=== PATIENT | male | born 1995 | race Two or more races ===

== ENCOUNTER 2016-06-01 06:17 | Day surgery (SDC) | payer OTHER ==
[2016-05-31 09:56] VITALS: BMI 23.7
[2016-06-01] VITALS (21 sets, daily range): BP systolic 122–171; BP diastolic 54–78; PULSE 64–90; RESP 14–20; Ht 180.3 cm; Wt 77.0 kg
[~2016-06-01] VITALS: Ht 180.3 cm; Wt 77.0 kg
[2016-06-01] MEDS ORDERED: POLYMYXIN/BACITRACIN 1L IRRIG ONE (07:05)
[2016-06-01] MEDS ORDERED: XOPENEX (07:17)
[2016-06-01] MEDS ORDERED: FENTAnyl 50 MCG/ML VIAL ONE (07:33)
[2016-06-01] MEDS ORDERED: ROPIVACAINE 0.5 % 30 ML VIAL ONE ×3 (07:33→11:20)
[2016-06-01] MEDS ORDERED: MIDAZOLAM 1 MG/ML 2 ML INJ ONE (07:33)
--- NOTE | 2016-06-01 07:51 | HPN ---
Date/Time of Note Date/Time of Note DATE: 06/01/16 TIME: 07:51 Interval H&P Admission Note Pt. seen H&P reviewed: No system changes IRIS ANDREWS MD Jun 01, 2016 07:51
[2016-06-01] MEDS ORDERED: CEFAZOLIN 2 GM/50 ML (PMX) 50 ML IVPB ONE (08:00)
[2016-06-01] MEDS ORDERED: morphine 10 MG INJ IV PRN (08:00)
[2016-06-01] MEDS ORDERED: morphine 2 MG INJ IV PRN (08:00)
[2016-06-01] MEDS ORDERED: OXYCODONE/ACETAMINOPHEN (5/325) TAB PO PRN (08:00)
[2016-06-01] MEDS ORDERED: ONDANSETRON 4 MG INJ IV PRN (09:00)
[2016-06-01] MEDS ORDERED: DIPHENHYDRAMINE 50 MG INJ IV PRN (09:00)
[2016-06-01] MEDS ORDERED: FENTAnyl 50 MCG/ML VIAL IV PRN (09:00)
[2016-06-01] MEDS ORDERED: MEPERIDINE 25 MG INJ IV PRN (09:00)
[2016-06-01] MEDS ORDERED: HYDROmorphONE (0.2 MG/ML) 10ML SYG IV PRN ×2 (09:00)
[2016-06-01] MEDS ORDERED: BUPIVACAINE 0.5% (SDV) 30 ML INJ ONE (09:03)
[2016-06-01] MEDS ORDERED: POVIDONE IODINE 10% 28.4 GM OINT ONE (10:54)
[2016-06-01] MEDS ORDERED: morphine 10 MG INJ ONE (11:18)
--- NOTE | 2016-06-01 11:20 | RADRPT ---
PROCEDURE: 5 intraoperative radiographs were obtained in surgery with fluoroscopy. CLINICAL INDICATION: Fluoroscopic intraoperative evaluation of the right knee prior arthroscopic s urgery. TECHNIQUE: 5 intraoperative radiographs are performed in the AP and lateral projections. COMPARISON: No. FINDINGS: The femur tibia fibula and patella appear anatomically aligned. Surgical hardware projects over the dorsal surface of the patella. There were Blanco hands placed in the distal femur. No effusion is present. IMPRESSION: Fluoro time: 41.9 seconds mGy: 1.61 Physician Dennis Date Time Electronically viewed and signed by Tj Martinez Physician on 06/01/2016 11:20 LUKAS/
[2016-06-01] MEDS ORDERED: ONDANSETRON 4 MG INJ ONE (11:23)
[2016-06-01] MEDS ORDERED: ROCURONIUM 50 MG INJ ONE (11:23)
[2016-06-01] MEDS ORDERED: LIDOCAINE 2% (SDV) 5 ML INJ ONE (11:23)
[2016-06-01] MEDS ORDERED: PROPOFOL 20 ML ONE (11:23)
[2016-06-01] MEDS ORDERED: CEFAZOLIN 1 GM INJ ONE (11:48)
--- NOTE | 2016-06-03 12:08 | OPR ---
Patella dislocation DATE OF OPERATION: 06/01/2016 SURGEON: Iris Darnell MD. LAND LEVELER SURGEON: Francisco Darnell MD PREOPERATIVE DIAGNOSIS: 1. Right knee recurrent patella dislocation 2. Chondromalacia of the patellofemoral joint. POSTOPERATIVE DIAGNOSES: 1. 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 2. Grade 2/3 chondromalacia of the medial patella facet with fissuring and lateral trochlear shelf. PROCEDURES: 1. Right knee arthroscopy with chondroplasty. 2. Right knee medial parapatellar ligament reconstruction with semitendinosus allograft. 3. Right knee medial parapatellar ligament reefing. 4. Use of fluoroscopy. TOURNIQUET TIME: 109 minutes at 250 mmHg. ANESTHESIOLOGIST: Dr. Soria ANESTHESIA: General with a popliteal block IMPLANTS: 1. 2 4.75 mm Arthrex swivel lock. 2. A 6 x 23 mm Arthrex bio composite interference screw. 3. A semi tendinosis allograft. COMPLICATIONS: None. PATHOLOGY: None. INDICATIONS: The patient is a 20-year-old gentleman who sustained approximately 4 patellar dislocations over the course of the past 2 to 3 years and now presents with pain over the medial patella retinaculum with MRI showing complete tear of the medial patellofemoral ligament. The patient tried brace wear as well as physical therapy which has not improved his subluxation events or improved his ability to be active, given his constant concern for continued dislocation. Given this, the patient was indicated for surgical procedure. RISK NOTE: The patient was explained the risks and benefits of surgery in the patient's [place] language including, but not limited to, infection, bleeding, loss of limb, loss of life, pain, need for future surgery, risk of injury to blood vessels, nerves, ligaments or tendons. The patient acknowledges these risks by signing the surgical consent form. DESCRIPTION OF PROCEDURE: The patient was brought back to the operative theater , placed supine on the operative table and given preoperative regional block anesthesia and preoperative antibiotics. The patient had initially been marked in the preoperative holding area and the correct operative extremity was marked and confirmed with both patient and his consent. Once the patient was supine on the operative table, the patient had a tourniquet placed nonsterilely on the operative extremity. The patient was then prepped and draped in the normal sterile fashion. A timeout was taken and all parties in the room agreed it was the correct patient, correct extremity and correct procedure. The patient's knee was examined and shown that the patella subluxed laterally to approximately 2-3 quadrants of lateral no most recent patella translation. The anteromedial and anterolateral portals were then used and the arthroscope was then brought into the knee in the suprapatellar pouch. There was no evidence of any loose bodies in the suprapatellar pouch; however, the patellofemoral joint was then identified and there was shown to be extensive chondromalacia on the undersurface of patella specifically along the medial patella ridge where there was extensive fissuring noted with approximately grade II/grade III chondromalacia. The patella was also shown to be shifted laterally so that the medial border of the patella was just past or just along the lateral edge of the trochlear groove representing approximately 2 to 2.5 quadrants of translation. The scope was then brought into the medial gutter where no loose bodies were seen and then brought into the lateral gutter where again no loose bodies were seen and then brought into the popliteal groove. Again, no loose bodies were seen. The scope was then brought into the lateral joint and in the lateral compartment, the lateral meniscus was identified and probed and meniscus was found to be firm and intact. The scope was then brought into the intercondylar notch and the ACL was then identified and the PCL was identified and probed and the ACL and PCL were shown to be intact. The scope was then brought into the medial compartment and the medial compartment showed the metastatic melanoma was intact. The posterior horn was identified and found to be attached and intact as well. A superior medial arthroscopic portal was made to better evaluate for tracking of the patella which also showed the patella fissuring of the medial patella facet. This also allowed for the arthroscopy to be maintained in the knee to evaluate for tracking and for recentralization of the patella during surgery. At this point in time, the scope was then brought out and the tourniquet was brought up to approximately 250 mmHg and incision was made along the medial border of the patella and the incision was brought down to expose the medial edge of the patella and under fluoroscopic guidance, at approximately the 3 and 4 layer, just above the capsular layer, under fluoroscopic guidance, at a point approximately 3 mm distal to the proximal medial quadrant of the patella, a 2.4 mm drill bit guide pin was then placed across in a transverse fashion under fluoroscopic guidance to a minimum depth of approximately 25 mm. The second 2.4 mm guide pin was then placed approximately 15 mm distal to the first one and then placed in a parallel fashion to the first one. The guide pin again was over drilled with a 4.5 mm reamer to a depth of approximately 25 mm proximally and 20 mm in the mid portion. At this point, the graft had been already whipstitched on the back table with a 2-0 FiberWire suture and measured approximately 240 mm in length. The tail of the first graft was then passed using the BioComposite SwiveLock into the patella and then the suture was then back tied to reinforce the fixation using a curved free needle. The second limb of the graft was then placed into the mid portion of the patella again in a similar fashion and back tied to further reinforce the fixation. Attention was then turned to the femoral insertion site and the proper position of the femoral insertion of the MPFL was identified approximately 1 mm anterior to the posterior cortex extension line, 2.5 mm distal to the posterior articular border of the medial femoral condyle and just proximal to the level of the posterior point of Blumensaat line. This was identified using the MPFL template in the lateral view and then a 2.4 mm guidepin was drilled across the femur and out through the lateral epicondyle. The pin, at this point, was then aimed slightly proximal and anterior to avoid the intercondylar notch. The medial subdermal layer was then prepared using a right angle clamp to dissect into the prepared layer down to the medial epicondyle. A looped FiberWire was then passed to the patellar insertion and the isometry of the MPFL was provisionally evaluated and cycled through a range of motion. The graft was then passed from the patella origin to the insertion port of the medial femoral condyle. Equal tension was maintained on both graft bundles during this step to ensure adequate tensioning of the patellofemoral joint and the sutures were then delivered out the medial incision with equal tension on both grafts. A 1.1 mm Nitinol wire was then placed into the drill hole to guide and facilitate the insertion of the graft and facilitate the insertion of the 6 x 23 mm BioComposite interference screw. The graft sutures were then brought into the eyelet of the K-wire to deliver it out through the lateral femur prior to the graft entering the femoral socket. Using the clamp with a diana, the graft was pretensioned and inserted into the socket with equal tension on both sides of the graft bundles, manually fixating the lateral patellar facet flush with the lateral femoral condyle, with the knee at approximately 30 degrees of flexion. While maintaining tension on the graft, the interference screw was then placed into the femur. Tracking was then identified with the knee taken through a range of motion to ensure there was not over tension. At this point, the MPFL was then reefed with 2-0 FiberWire using a pants-over- vest fashion and then the layer above was irrigated thoroughly and the layer above was closed with 3-0 Monocryls followed by 4-0 nylon in running fashion. All the wounds were then irrigated thoroughly and closed with 3-0 Monocryl and 4 -0 Monocryl and Steri-Strips and then taken through a range of motion to ensure that there was not over tensioning. The patient was able to be brought to 90 degrees without concern of over tensioning past 90 degrees to approximately 110 degrees. The wounds were then dressed with Xeroform, 4 x 4's, ABDs and dressed in a well-padded dressing with TONYA hose. At the end of the case, all sponge and needle counts were correct, and pulses were 2+ distally. The patient was placed in a knee immobilizer, given that the insurance company had not given the patient the adequate brace that we had we had requested which was the TROM brace in order to maintain full extension. LAND LEVELER NOTE: The use of an orthopedic security assistant was needed on this case given the complexity and length of the case. Orthopedic security assistant was needed to assist in manipulating the arthroscope during the case, as well as positioning of the patella during the introduction of the screws to maintain adequate reduction of the patella. Without the use of an orthopedic security assistant, the case would have been extensively longer and more complex better. Dictated By: IRIS GOLDBERG/SUSANNAH Conf#: [id number] DID#: [id number] JULIANNA
== END 2016-06-01 14:43 | disposition home or self-care (01) ==
LOC: SDS 06:17
PROVIDERS: ATTEND Orthopaedic Surgery
DX: M22.01 Recurrent dislocation of patella, right knee (principal); M94.261 Chondromalacia, right knee; Z88.8 Allergy status to other drugs, medicaments and biological substances
CPT/HCPCS: 27422; 29877; 73560; J0690; J2250; J2270; J2405; J2795; J3010; Z7512; Z7610

== ENCOUNTER 2016-06-01 21:57 | Inpatient (IN) | payer OTHER ==
[~2016-06-01] VITALS: Ht 180.3 cm; Wt 74.9 kg
[~2016-06-01 21:57] MED LIST: XOPENEX
[2016-06-01] MEDS ORDERED: HYDROmorphONE 1 MG/ML SYG IV STA (23:08)
[2016-06-01] MEDS ORDERED: KETOROLAC 30 MG INJ IV STA (23:08)
[2016-06-01] MEDS ORDERED: DIAZEPAM 5 MG/ML SYG IV ONE (23:30)
[2016-06-02] MEDS ORDERED: HYDROmorphONE 1 MG/ML SYG IV STA ×3 (00:41→01:36)
--- NOTE | 2016-06-02 01:21 | RADRPT ---
PROCEDURE: US Lower extremity Venous. CLINICAL INDICATION: Postoperative pain and swelling TECHNIQUE: Multiple sonographic images of the right lower extremity deep venous system was obtaine d utilizing grayscale, color-flow, compressive sonography and doppler imaging with augmentation. COMPARISON: None. FINDINGS: There is normal compressibility / flow within the right common femoral, femoral and popliteal veins. The visualized deep veins of the calf are unremarkable. RPTAT:HJJR IMPRESSION: No sonographic evidence for deep venous thrombosis of the right lower extremity. Physician Chantell Date Time Electronically viewed and signed by Physician Chantell on 06/02/2016 01:21 /
[2016-06-02] MEDS ORDERED: CEFAZOLIN 1 GM INJ IV SCH (02:00)
[2016-06-02] MEDS ORDERED: DIAZEPAM 5 MG/ML SYG IV ONE (02:00)
[2016-06-02] MEDS ORDERED: ACETAMINOPHEN 325 MG TAB PO PRN ×2 (02:00→03:30)
[2016-06-02] MEDS ORDERED: HYDROmorphONE 0.2 MG/ML PCA IV SCH ×3 (02:00→12:00)
[2016-06-02] MEDS ORDERED: ONDANSETRON 4 MG INJ IV PRN (02:00)
[2016-06-02] MEDS ORDERED: DIPHENHYDRAMINE 25 MG CAP PO PRN (02:00)
[2016-06-02] MEDS ORDERED: CYCLOBENZAPRINE 10 MG TAB PO PRN ×2 (02:00→09:00)
--- NOTE | 2016-06-02 02:05 | OPR ---
Date/Time of Note Date/Time of Note DATE: 06/02/16 TIME: 02:02 Operative Report Procedure Date: Jun 01, 2016 Preoperative Diagnosis Right knee recurrent patellar desiccation Postoperative Diagnosis Right knee recurrent patellar dislocation Operation Performed 1. Right knee arthroscopy with chondroplasty 2. right knee medial patellofemoral ligament reconstruction with semitendinosus allograft 3. right knee medial femoral ligament reefing 4. use of fluoroscopy Surgeon: IRIS ANDREWS MD rn first assistant: RAOUL ANDREWS MD Anesthesia: general, other (Fashion iliacus block) Anesthesiologist: DAVIS LEVINE MD Tourniquet Time: 109 minutes at 250 mmHg Estimated Blood Loss: 0 - 10 ml's Complications: None Pt Condition Post Procedure: stable Disposition: PACU IRIS ANDREWS MD Jun 02, 2016 02:05
--- NOTE | 2016-06-02 02:11 | HP ---
Date/Time of Note Date/Time of Note DATE: 06/02/16 TIME: 02:10 Assessment/Plan VTE Prophylaxis VTE Prophylaxis Intervention: anti-embolic stocking, SCD's Assessment/Plan Assessment/Plan Postoperative day #0 status post right knee arthroscopy with chondroplasty and right knee medial patellofemoral ligament reconstruction with semitendinosus allograft -POWER LINE INSTALLER, p.o. and IV pain control -Nonweightbearing to the right lower extremity with continuous ice and knee immobilizer - Physical therapy to gait train SCDs and TONYA slade Ultrasound shows no evidence of any DVT currently HPI/ROS Admit Date/Time Admit Date/Time 06/02/16 0144 Hx of Present Illness Patient is here with his father who does most of the talking. Patient had surgery on right knee the morning of 06/01/[address] Darnell. The procedure went as planned. No post-operative complications. Unfortunately, patient's nerve block wore off after approximately 10 hours and his knee pain has become worse and worse, brining him to the ER in tears. They tell me it was supposed to last for 24 hours. I told them that different people react differently and that I am sorry he did not get the full potential benefit of that medication. The pain meds that were prescribed by Dr Darnell were not strong enough and so he came to the ER for treatment. During this interview, I find out that patient had sleep apnea when he was younger. He does not have a CPAP and has not had a Sleep Study as an adult. Patient states he has only woke up choking once recently, and it used to happen to him all of the time. No history of Heart Murmur ROS General: Admits: Denies: Fever, Chills, Poor Appetite, Generalized Body Aches Eyes: Admits: Denies: Blurry Vision, Double Vision HENT: Admits: Denies: Ear Pain/Pressure, Runny/Stuffy Nose, Sore Throat Cardiovascular: Admits: Denies: Chest Pain, Palpitations, Leg Swelling Pulmonary: Admits: Denies: Cough, Wheeze, Shortness of Breath Gastrointestinal: Admits: Denies: Abdominal Pain, Nausea, Vomiting, Diarrhea, Blood in Stool, Black-Colored Stool Urogenital: Admits: Denies: Burning with Urination, Urinary Frequency Musculoskeletal: Admits: Joint Pain, Joint Swelling, Muscle Pain, all in Right Knee Denies: Neurological: Admits: Denies: Headache, Dizziness, Numbness, Tingling, Shooting Pains Integumentary: Admits: Denies: Rash, Itch Endocrine: Admits: Denies: Excessive Thirst, Excessive Hunger, Intolerant to Cold , Intolerant to Heat Psychiatric: Admits: Denies: Anxiety, Depression PMH/Family/Social Past Medical History Sleep Apnea, currently untreated - not tested with Sleep Study as an adult Past Surgical History Right Knee Surgery: arthroscopy with chondroplasty and right knee medial patellofemoral ligament reconstruction with semitendinosus allograft Social History Alcohol Use: none Smoking Status: Never smoker Drug Use: none Exam/Review of Systems Vital Signs Vitals Vital Signs Date Time Temp Pulse Resp B/P Pulse Ox O2 Delivery O2 Flow Rate FiO2 06/01/16 23:56 67 20 159/83 100 Nasal Cannula 06/01/16 22:45 97.9 Exam Exam General: Eyes: Sclera White, EOMI HENT: Normocephalic/Atraumatic, External Ears/Nose Normal, Moist Mucus Membranes Neck: Supple, Trachea Midline Cardiovascular: Normal Rate, Normal Rhythm, Late SANDI at LLSB radiating to the LUSB, but not heard on the right side. The second heart sond is split or there is a gallp or the Murmur is actually mid-systolc. Pulmonary: Clear to Auscultation Bilaterally, Normal Respiratory Effort, No Rales, Rhonchi or Wheezes Gastrointestinal: Normoactive Bowel Sounds, Soft, Non-Tender/Non-Distended, No Hepatosplenomegaly Appreciated, No Pulsatile Masses Urogenital: Deferred Musculoskeletal: Normal Muscle Bulk and Tone. Right Knee in Long Brace. I did not remove brace or palpate the knee, leaving that to Dr. Darnell. Patient could wiggle his toes and flex/dorsiflex- his right foot with little to no discomfort in his knee. Neurological: CN II - XII Grossly Intact, Non-Focal, Speech Normal Integumentary: Normal Moisture and Temperature, Good Turgor, No Jaundice, No Rash Lymphatic: No Cervical Lymphadenopathy Psychiatric: Appropriate Mood and Affect, Good Eye Contact Medications Medications Current Medications Cefazolin Sodium (Ancef) 1 gm Q8H IV ; Start 06/02/16 at 02:00; Stop 06/03/16 at 18:01 Ondansetron HCl (Zofran Inj) 4 mg Q4H PRN IV NAUSEA AND/OR VOMITING; Start at 02:00 Diphenhydramine HCl (Benadryl) 25 mg Q4H PRN PO ITCHING; Start 06/02/16 at 02: 00 Cyclobenzaprine HCl (Flexeril) 10 mg QHS PRN PO MUSCLE SPASMS; Start 06/02/16 at 02:00 Hydromorphone HCl (Dilaudid POWER LINE INSTALLER) 0 MG/HR CONTINUOUS RATE ... Q4PCA IV ; Start 06/02/16 at 02:00 Ketorolac Tromethamine (Toradol) 30 mg Q6 IV ; Start 06/02/16 at 06:00; Stop at 05:59 Ascorbic Acid (Vitamin C) 1,000 mg DAILY ONCE PO ; Start 06/02/16 at 09:00; Stop 06/02/16 at 09:01 Cholecalciferol (Vitamin D) 5,000 unit DAILY ONCE PO ; Start 06/02/16 at 09:00 ; Stop 06/02/16 at 09:01 FAUSTINO MYLES DO Jun 02, 2016 02:11
--- NOTE | 2016-06-02 02:11 | CONS ---
Date/Time of Note Date/Time of Note DATE: 06/02/16 TIME: 02:05 Assessment/Plan Assessment/Plan Additional Assessment/Plan Postoperative day #0 status post right knee arthroscopy with chondroplasty and right knee medial patellofemoral ligament reconstruction with semitendinosus allograft -GUARD CAPTAIN, p.o. and IV pain control -Nonweightbearing to the right lower extremity with continuous ice and knee immobilizer - Physical therapy to gait train SCDs and TONYA slade Ultrasound shows no evidence of any DVT currently Brennon Andrews MD Consultation Date/Type/Reason Admit Date/Time 06/02/2016 Date of Consultation: Jun 02, 2016 Type of Consultation: Orthopedic Surgery Referring Provider: FAUSTINO MYLES DO Hx of Present Illness Patient is a 20-year-old gentleman who is admitted to the emergency room status post right knee arthroscopy with medial patellofemoral ligament reconstruction with semitendinosus allograft performed on the morning of 06/01/2016. Patient was discharged home from surgery with pain well-controlled however I received a several phone calls over the past several hours indicating that the patient's block had worn off and his pain was very high. Patient reported the pain medicine was not able to control his pain and I suggested the patient will report to the emergency room for better control of his pain. Patient denies any chest pain or heart palpitations he does report that he is breathing quite rapidly and feeling very anxious. He denies any numbness or tingling. Past Medical History Medical History: no pertinent history Past Surgical History As stated above Social History Alcohol Use: none Smoking Status: Never smoker Drug Use: none Exam/Review of Systems Vital Signs Vitals Vital Signs Date Time Temp Pulse Resp B/P Pulse Ox O2 Delivery O2 Flow Rate FiO2 06/01/16 23:56 67 20 159/83 100 Nasal Cannula 06/01/16 22:45 97.9 Exam Constitutional: alert, oriented, well developed Psych: anxiety Head: atraumatic, normocephalic Eyes: EOMI, nl conjunctiva, nl lids Musculoskeletal: other (Right lower extremity-wounds appear clean dry and intact with no evidence of any erythema ecchymosis or edema. He has ankle dorsiflexion and plantar flexion with intact extensor hallucis longus. Sensation is intact light touch to the medial, lateral, plantar, dorsal, first dorsal webspace distribution. He has a soft compartment to both feet, hamstring , quadriceps and anterior and posterior tibial compartments. He has a 2+ dorsalis pedis and posterior tibialis pulses with capillary refill brisk and toes warm and well-perfused ) Medications Medications Current Medications Cefazolin Sodium (Ancef) 1 gm Q8H IV ; Start 06/02/16 at 02:00; Stop 06/03/16 at 18:01 Ondansetron HCl (Zofran Inj) 4 mg Q4H PRN IV NAUSEA AND/OR VOMITING; Start at 02:00 Diphenhydramine HCl (Benadryl) 25 mg Q4H PRN PO ITCHING; Start 06/02/16 at 02: 00 Cyclobenzaprine HCl (Flexeril) 10 mg QHS PRN PO MUSCLE SPASMS; Start 06/02/16 at 02:00 Hydromorphone HCl (Dilaudid GUARD CAPTAIN) 0 MG/HR CONTINUOUS RATE ... Q4PCA IV ; Start 06/02/16 at 02:00 Ketorolac Tromethamine (Toradol) 30 mg Q6 IV ; Start 06/02/16 at 06:00; Stop at 05:59 BRENNON ANDREWS MD Jun 02, 2016 02:11
--- NOTE | 2016-06-02 02:17 | RADRPT ---
PROCEDURE: Right lower extremity arterial ultrasound with Doppler. CLINICAL INDICATION: Pain and edema. TECHNIQUE: Multiple sonographic images of the right lower extremity arterial system was obtained u tilizing grayscale, color-flow and Doppler imaging. The images were reviewed on a PACS workstation. COMPARISON: None. FINDINGS: There is biphasic and triphasic flow within the right common femoral, superficial femoral, popliteal , posterior tibial and dorsalis pedis arteries. There is no significant atherosclerotic disease. Th ere is no stenosis or occlusion. IMPRESSION: Unremarkable right lower extremity arterial ultrasound. .Cristhian Interiano MD, MD Date Time Electronically viewed and signed by .Cristhian Interiano MD, MD on 06/02/2016 02:16 .T/
[2016-06-02 02:28] LABS: ADD SCAN DIFF NO
[2016-06-02 02:36] LABS: POTASSIUM 3.5 mmol/L (3.5-5.1)
[2016-06-02 02:38] LABS: CREATININE 0.98 mg/dl (0.61-1.24)
--- NOTE | 2016-06-02 02:44 | ERA ---
ER Documentation Chief Complaint Date/Time DATE: 06/02/16 TIME: 02:35 Chief Complaint s/p right knee surgery this am, c/o right knee pain/sob x 1 hour HPI 20-year-old male comes to emergency room status post knee surgery this morning for severe pain not responsive to 3 OxyContin pills at home. The pain is right in the surgical area and has no distal numbness. ROS All systems reviewed and are negative except as per history of present illness. Medications Home Meds Reported Medications [Xopenex] No Conflict Check 06/01/16 Allergies Allergies: Coded Allergies: lansoprazole (Verified Allergy, Unknown, 06/01/16) metoclopramide (Verified Allergy, Unknown, 06/01/16) PMhx/Soc History of Surgery: Yes (FUNDOPLICATION) Anesthesia Reaction: No Hx Neurological Disorder: No Hx Respiratory Disorders: Yes Hx Cardiac Disorders: No Hx Psychiatric Problems: No Hx Miscellaneous Medical Probl: No Hx Alcohol Use: Yes (OCCAISIONALLY) Hx Substance Use: No Hx Tobacco Use: No Smoking Status: Never smoker Physical Exam Vitals Vital Signs Date Time Temp Pulse Resp B/P Pulse Ox O2 Delivery O2 Flow Rate FiO2 06/01/16 23:56 67 20 159/83 100 Nasal Cannula 06/01/16 22:45 97.9 85 18 185/93 100 Nasal Cannula 06/01/16 22:03 98.7 86 20 172/104 100 Physical Exam Const: [] Moderate distress, Head: Atraumatic Eyes: Normal Conjunctiva ENT: Normal External Ears, Nose and Mouth. Neck: Full range of motion..~ No meningismus. Resp: Clear to auscultation bilaterally Cardio: Regular rate and rhythm, no murmurs Skin: No petechiae or rashes Back: No midline or flank tenderness Ext: No cyanosis, or edema, distal pulses intact distal extremities. Well- healing surgical site without significant swelling. Distal sensation intact. Neur: Awake and alert and oriented 3, cranial nerves II through XII intact Psych: Normal Mood and Affect Results 24 hrs Current Medications Medications (Trade) Dose Ordered Sig/Tasneem Route PRN Reason Start Time Stop Time Status Last Admin Dose Admin Diazepam (Valium) 5 mg ONCE ONCE IV 06/01/16 23:30 06/01/16 23:31 DC 06/01/16 23:29 Ketorolac Tromethamine (Toradol) 30 mg ONCE STAT IV 06/01/16 23:08 06/01/16 23:11 DC 06/01/16 23:28 Hydromorphone HCl (Dilaudid) 0.5 mg ONCE STAT IV 06/01/16 23:08 06/01/16 23:11 DC 06/01/16 23:28 Hydromorphone HCl (Dilaudid) 1 mg ONCE STAT IV 06/02/16 00:41 06/02/16 00:45 DC 06/02/16 00:49 Hydromorphone HCl (Dilaudid) 1 mg ONCE STAT IV 06/02/16 01:36 06/02/16 01:42 DC 06/02/16 01:43 Hydromorphone HCl (Dilaudid) 0.5 mg ONCE STAT IV 06/02/16 01:36 06/02/16 01:42 DC 06/02/16 01:44 Ondansetron HCl (Zofran Inj) 4 mg BRIDGE ORDER PRN IV NAUSEA AND/OR VOMITING 06/02/16 02:00 06/03/16 01:59 Acetaminophen (Tylenol Tab) 650 mg ER BRIDGE PRN PO MILD PAIN/FEVER 06/02/16 02:00 06/03/16 01:59 Diazepam (Valium) 5 mg ONCE ONCE IV 06/02/16 02:00 06/02/16 02:01 DC 06/02/16 02:09 Cefazolin Sodium (Ancef) 1 gm Q8H IV 06/02/16 02:00 06/03/16 18:01 Ondansetron HCl (Zofran Inj) 4 mg Q4H PRN IV NAUSEA AND/OR VOMITING 06/02/16 02:00 Diphenhydramine HCl (Benadryl) 25 mg Q4H PRN PO ITCHING 06/02/16 02:00 Cyclobenzaprine HCl (Flexeril) 10 mg QHS PRN PO MUSCLE SPASMS 06/02/16 02:00 Hydromorphone HCl (Dilaudid INVESTMENT SALES ASSISTANT) 0 MG/HR CONTINUOUS RATE ... Q4PCA IV 06/02/16 02:00 Ketorolac Tromethamine (Toradol) 30 mg Q6 IV 06/02/16 06:00 06/05/16 05:59 Ascorbic Acid (Vitamin C) 1,000 mg DAILY ONCE PO 06/02/16 09:00 06/02/16 09:01 Cholecalciferol (Vitamin D) 5,000 unit DAILY ONCE PO 06/02/16 09:00 06/02/16 09:01 Procedures/MDM Refractory postop knee pain. Patient was initially given Dilaudid, Valium, Toradol which is his pain immediately. He then did have return of severe pain requiring multiple doses of pain medication. I spoke with Dr. Darnell, who performed the surgery earlier today. He came in the emergency room and saw the patient. We both agreed the patient should be admitted for intractable pain. Venous and arterial Dopplers were performed with no significant vascular lesion. I spoke with Dr. Rice will be admitting the patient to the medical surgical floor. Ultrasound venous Doppler right lower extremity interpretation: No DVT Doppler arterial ultrasound right lower extremity: No arterial lesion, good blood flow. Departure Diagnosis: Primary Impression: Postoperative pain Additional Impression: Intractable pain Condition: Stable ERWIN BARRIOS Jun 02, 2016 02:43
[2016-06-02 02:48] LABS: BASOPHILS % 0.2 % (0.0-2.0); HEMOGLOBIN 15.1 g/dl (14.0-18.0); LYMPHOCYTES # 0.9 10^3/ul (0.8-2.9); LYMPHOCYTES % 7.9 % (15.0-51.0); MEAN CORPUSCULAR HEMOGLOBIN 28.2 pg (29.0-33.0); MEAN CORPUSCULAR HGB CONC 32.8 g/dl (32.0-37.0); MEAN PLATELET VOLUME 10.3 fl (7.4-10.4); MONOCYTE # 0.8 10^3/ul (0.3-0.9); NEUTROPHIL # 9.9 10^3/ul (1.6-7.5); NEUTROPHILS % 84.6 % (39.0-77.0); PLATELET COUNT 220 10^3/UL (140-415); RED BLOOD COUNT 5.35 10^6/ul (4.70-6.10); RED CELL DISTRIBUTION WIDTH 12.4 % (11.5-14.5); WHITE BLOOD COUNT 11.7 10^3/ul (4.8-10.8)
[2016-06-02 03:09] VITALS: TEMP 98
[2016-06-02] MEDS ORDERED: NACL 0.9% 3 ML SYG IV SCH (03:30)
[2016-06-02] MEDS ORDERED: NALOXONE (0.4 MG/ML) INJ IV PRN (03:30)
[2016-06-02 03:45] VITALS: Ht 180.3 cm; Wt 74.9 kg
[2016-06-02 03:55] VITALS: BP 156/86; RESP 20
[2016-06-02] MEDS ORDERED: HYDROmorphONE 2 MG/ML SYG IV STA (04:16)
[2016-06-02] MEDS: KETOROLAC 30 MG INJ IV SCH ×3 (07:44→18:55)
[2016-06-02 08:14] VITALS: BP 137/77; RESP 20
[2016-06-02] MEDS ORDERED: CHOLECALCIFEROL 2,000 UNIT CAP PO ONE (09:00)
[2016-06-02] MEDS ORDERED: ASCORBIC ACID 500 MG TAB PO ONE (09:00)
[2016-06-02] MEDS: FAMOTIDINE 20 MG TAB PO SCH ×2 (09:05→21:26)
[2016-06-02] MEDS: ONDANSETRON 4 MG INJ IV PRN (09:07)
[2016-06-02] MEDS: CEFAZOLIN 1 GM/50 ML (PMX) 50 ML IVPB SCH ×2 (10:03→18:55)
--- NOTE | 2016-06-02 10:04 | RADRPT ---
Echocardiogram Report Patient Name: JUAN CARLOS PINO Gender: Male Date: 1995 Study Date: 02-Jun-2016 Histotechnologist Supervisor: [facility] Location: [id number] Ref. Physician: FAUSTINO MYLES Quality: Technically Difficult Study Procedures: Transthoracic echocardiogram with complete 2D, M-Mode, and doppler examination. Indications: UNDIAGNOSED CARDIAC MURMUR. 2D/M Mode Doppler Measurement Value Normal Ranges Measurement Value Normal Ranges LVIDd 2D 4.8 3.5 - 5.6 cm AV Peak Jc 1.5 m/sec LVIDs 2D 3.0 2.1 - 4.1 cm AV Peak PG 9.0 mmHg FS 2D 37.9 % LVOT Peak Jc 1.2 m/sec LVPWd 2D 1.2 0.6 - 1.1 cm LVOT Peak PG 6.0 mmHg IVSd 2D 0.9 0.6 - 1.1 cm MV E Peak Jc 0.8 m/sec IVS/LVPW 2D 0.8 MV A Peak Jc 1.0 m/sec AoR Diam 2D 2.6 2.0 - 3.7 cm MV E/A 0.8 LA/Ao 2D 1 0 - 1 MV Decel Time 232 msec EDV 2D 109.0 cm3 MV E/A 0.8 ESV 2D 26.2 cm3 LA Dimen 2D 3.1 2.3 - 4.0 cm Findings Left Ventricle: Normal left ventricular systolic function. Normal left ventricular cavity size. Normal left ventricular wall thickness. Ejection fraction is visually estimated at 65 %. Abnormal Diastolic Function. Right Ventricle: Normal right ventricular size. Normal right ventricular systolic function. Left Atrium: The left atrium is normal in size. Right Atrium: The right atrium is normal in size. Mitral Valve: Mild mitral leaflet calcification. Trace mitral regurgitation. Aortic Valve: Trileaflet aortic valve. Trace aortic valve regurgitation. Tricuspid Valve: Tricuspid valve not well visualized. There is trace tricuspid regurgitation. Pulmonic Valve: There is trace pulmonic regurgitation. Pericardium: Normal pericardium with no significant pericardial effusion. Aorta: Normal aortic root. IVC: Dilated IVC with respiratory collapse consistent with elevated right atrial pressure. Conclusions 1.Normal left ventricular systolic function. Normal left ventricular cavity size. Normal left ventricular wall thickness. Ejection fraction is visually estimated at 65 %. Abnormal Diastolic Function. Electronically Signed By: Pavan Chatman 02-Jun-2016 10:03:49 -0700 Patient Name: JUAN CARLOS PINO Study Date: 02-Jun-2016 [id number]
--- NOTE | 2016-06-02 11:48 | PN ---
Date/Time of Note Date/Time of Note DATE: 06/02/16 TIME: 11:48 Assessment/Plan Lines/Catheters IV Catheter Type (from Nrsg): Saline Lock Assessment/Plan Assessment/Plan POD# 1 status post right knee arthroscopy with medial patellofemoral ligament reconstruction with semitendinosus allograft performed on the morning of 2016. Admitted early this morning for intractable post op pain. Arterial and venous doppler u/s negative. Patient has a high level of anxiety associated with the surgery and pain was not well controlled. - NWB to the RLE in knee immobilizer - PT to gt - PROGRAMMER NUMERICAL CONTROL, oxycodone prn and toradol for pain - Dr Hutchins consulted for pain management - Appreciate Primary and Cards recs regarding newly diagnoses diastolic heart murmur - will plan to dc when pain is better controlled. - SCDs, teds, - MRI of the R knee to evaluate for increased post op pain ---- Jones Andrews MD Subjective 24 Hr Interval Summary Patient's pain is much better controlled now on dilaudid PROGRAMMER NUMERICAL CONTROL. Denies any fevers , chills, nausea, vomiting. Still feeling some anxiety, but less so then yesterday evening. Denies any numbness or tingling Feeding: advancing diet Pain Control: severe Exam/Review of Systems Vital Signs Vitals Vital Signs Date Time Temp Pulse Resp B/P Pulse Ox O2 Delivery O2 Flow Rate FiO2 06/02/16 08:14 98.0 62 20 137/77 100 06/02/16 03:45 Nasal Cannula 2.0 Intake and Output 06/01/16 06/01/16 06/02/16 15:00 23:00 07:00 Intake Total 120 ml Balance 120 ml Exam Constitutional: alert, oriented, well developed Psych: anxiety Musculoskeletal: other (RLE/ 5 out of 5 TA/GSC/EDL, SILT m/l/d/p/fdws. DP and PT 2+. toes wwp, cr brisk, ttp over the ant knee, no pain along the posterior knee) Results Result Diagram: 06/01/16224406/01/165 IRIS ANDREWS MD Jun 02, 2016 11:48
[2016-06-02 12:00] VITALS: BP 135/77; PULSE 76; RESP 18
[2016-06-02] MEDS ORDERED: oxyCODONE (CR) 20 MG TAB [oxyCONTIN] PO SCH (12:00)
[2016-06-02] MEDS ORDERED: HYDROmorphONE 1 MG/ML SYG IV PRN (12:00)
[2016-06-02 16:00] VITALS: BP 135/76; PULSE 76; RESP 18
--- NOTE | 2016-06-02 16:15 | PN ---
Date/Time of Note Date/Time of Note DATE: 06/02/16 TIME: 16:11 Assessment/Plan VTE Prophylaxis VTE Prophylaxis Intervention: anti-embolic stocking, LMWH Lines/Catheters IV Catheter Type (from Nrs): Saline Lock Urinary Cath still in place: No Assessment/Plan Chief Complaint/Hosp Course Subjective: TUBE FITTER was not working overnight. Presently pain 5 out of 10. No dyspnea fever. Objective: Vital signs stable Physical examination No pallor JVD Regular Clear Benign Extremities mild edema Assessment and plan 1. Recurrent patellar dislocation. POD 2 elective Rt knee arthroscopy with chondroplasty; medial patellofemoral ligament reconstruction with semitendinosus allograft; medial femoral ligament reefing. Continue nonweightbearing with immobilizer. May need crutches. Start PT foci with Ortho. Start [id number] oral pain therapy. Check MRI. 2. Chronic CELINA; CPAP as needed 3. Prediabetes? Problems: Exam/Review of Systems Vital Signs Vitals Vital Signs Date Time Temp Pulse Resp B/P Pulse Ox O2 Delivery O2 Flow Rate FiO2 06/02/16 08:14 98.0 62 20 137/77 100 06/02/16 03:45 Nasal Cannula 2.0 Intake and Output 06/01/16 06/01/16 06/02/16 15:00 23:00 07:00 Intake Total 120 ml Balance 120 ml Results Result Diagram: 06/01/16224406/01/162244 Results 24 hrs Laboratory Tests Test 06/01/16 22:45 White Blood Count 11.7 H Red Blood Count 5.35 Hemoglobin 15.1 Hematocrit 46.0 Mean Corpuscular Volume 86.0 Mean Corpuscular Hemoglobin 28.2 L Mean Corpuscular Hemoglobin Concent 32.8 Red Cell Distribution Width 12.4 Platelet Count 220 Mean Platelet Volume 10.3 Neutrophils % 84.6 H Lymphocytes % 7.9 L Monocytes % 7.0 Eosinophils % 0.0 Basophils % 0.2 Nucleated Red Blood Cells % 0.0 Neutrophils # 9.9 H Lymphocytes # 0.9 Monocytes # 0.8 Eosinophils # 0.0 Basophils # 0.0 Nucleated Red Blood Cells # 0.0 Sodium Level 142 Potassium Level 3.5 Chloride Level 102 Carbon Dioxide Level 28 Anion Gap 16 Blood Urea Nitrogen 12 Creatinine 0.98 Glucose Level 156 Calcium Level 10.0 Medications Medications Current Medications Ondansetron HCl (Zofran Inj) 4 mg Q4H PRN IV NAUSEA AND/OR VOMITING Last administered on 06/02/16 09:07; Admin Dose 4 MG; Start 06/02/16 at 02:00 Diphenhydramine HCl (Benadryl) 25 mg Q4H PRN PO ITCHING; Start 06/02/16 at 02: 00 Ketorolac Tromethamine (Toradol) 30 mg Q6 IV Last administered on 06/02/16 12: 53; Admin Dose 30 MG; Start 06/02/16 at 06:00; Stop 06/03/16 at 06:00 Ondansetron HCl (Zofran Tab) 4 mg Q6H PRN PO NAUSEA AND/OR VOMITING; Start at 03:30 Acetaminophen (Tylenol Tab) 650 mg Q6H PRN PO PAIN LEVEL 1-3 OR FEVER; Start at 03:30 Famotidine (Pepcid) 20 mg Q12 PO Last administered on 06/02/16 09:05; Admin Dose 20 MG; Start 06/02/16 at 09:00 Naloxone HCl (Narcan) 0.2 mg Q2M PRN IV RR 8 BREATHS/MIN OR LESS; Start at 03:30 Cyclobenzaprine HCl 10 mg 10 mg DAILY PRN PO MUSCLE SPASMS Last administered on 06/02/16 08:22; Admin Dose 10 MG; Start 06/02/16 at 09:00 Cefazolin Sodium (Ancef 1 Gm/50 ml (Pmx)) 50 ml @ 100 mls/hr Q8H IVPB Last administered on 06/02/16 10:03; Admin Dose 100 MLS/HR; Start 06/02/16 at 10:00 ; Stop 06/03/16 at 18:01 Oxycodone HCl (Roxicodone) 10 mg Q4H PRN PO PAIN LEVEL 6-10; Start 06/02/16 at 12:00 Hydromorphone HCl (Dilaudid TUBE FITTER) 0 MG/HR CONTINUOUS RATE ... Q4PCA IV ; Start 06/02/16 at 12:00 ROCIO MUÑOZ MD Jun 02, 2016 16:15
[2016-06-02] MEDS ORDERED: [UNRECOGNIZED DRUG - REMARK] XX SCH (18:00)
[2016-06-02 20:01] VITALS: BP 135/72; RESP 16
[2016-06-02] MEDS: oxyCODONE (CR) 20 MG TAB [oxyCONTIN] PO SCH (21:15)
[2016-06-03] VITALS: BP 133/72; PULSE 74; RESP 18
[2016-06-03] MEDS: KETOROLAC 30 MG INJ IV SCH ×2 (00:04→06:02)
[2016-06-03] MEDS: CEFAZOLIN 1 GM/50 ML (PMX) 50 ML IVPB SCH ×3 (02:22→17:28)
[2016-06-03 04:00] VITALS: BP 129/76; PULSE 72; RESP 18
[2016-06-03] MEDS: ONDANSETRON 4 MG INJ IV PRN ×2 (04:02→17:26)
[2016-06-03 05:55] LABS: ADD SCAN DIFF NO; BASOPHILS % 0.3 % (0.0-2.0); EOSINOPHILS # 0.1 10^3/ul (0.0-0.5); EOSINOPHILS % 1.6 % (0.0-7.0); HEMATOCRIT 44.1 % (42.0-52.0); HEMOGLOBIN 14.5 g/dl (14.0-18.0); LYMPHOCYTES # 1.4 10^3/ul (0.8-2.9); LYMPHOCYTES % 19.4 % (15.0-51.0); MEAN CORPUSCULAR HEMOGLOBIN 28.9 pg (29.0-33.0); MEAN CORPUSCULAR HGB CONC 32.9 g/dl (32.0-37.0); MEAN CORPUSCULAR VOLUME 87.8 fl (82.0-101.0); MEAN PLATELET VOLUME 10.1 fl (7.4-10.4); MONOCYTE # 0.5 10^3/ul (0.3-0.9); MONOCYTES % 7.1 % (0.0-11.0); NEUTROPHIL # 5.2 10^3/ul (1.6-7.5); NEUTROPHILS % 71.5 % (39.0-77.0); PLATELET COUNT 197 10^3/UL (140-415); RED BLOOD COUNT 5.02 10^6/ul (4.70-6.10); RED CELL DISTRIBUTION WIDTH 12.3 % (11.5-14.5); WHITE BLOOD COUNT 7.3 10^3/ul (4.8-10.8)
[2016-06-03 06:16] LABS: ALBUMIN 3.8 g/dl (3.3-4.9)
[2016-06-03 06:17] LABS: POTASSIUM 4.1 mmol/L (3.5-5.1)
[2016-06-03 06:19] LABS: ALBUMIN/GLOBULIN RATIO 1.4; BILIRUBIN,INDIRECT 0.3 mg/dl (0-1.1); BILIRUBIN,TOTAL 0.3 mg/dl (0.2-1.3); TOTAL PROTEIN 6.5 g/dl (6.1-8.1)
[2016-06-03 06:20] LABS: CALCIUM 9.2 mg/dl (8.4-10.2)
[2016-06-03 06:29] LABS: MAGNESIUM 1.9 mg/dl (1.7-2.5)
[2016-06-03 06:50] LABS: THYROID STIMULATING HORMONE 0.744 MIU/L (0.465-4.680)
[2016-06-03] MEDS ORDERED: oxyCODONE (CR) 40 MG TAB [oxyCONTIN] PO SCH (07:00)
[2016-06-03 07:46] VITALS: BP 126/57; RESP 22
[2016-06-03] MEDS: FAMOTIDINE 20 MG TAB PO SCH ×2 (09:12→21:17)
[2016-06-03] MEDS: oxyCODONE (CR) 20 MG TAB [oxyCONTIN] PO SCH ×2 (09:12→21:16)
--- NOTE | 2016-06-03 11:15 | RADRPT ---
PROCEDURE: MRI OF THE RIGHT KNEE WITH AND WITHOUT CONTRAST CLINICAL INDICATION: Right knee pain, postoperative evaluation, surgery June 01, 2016 TECHNIQUE: MRI images were obtained utilizing multiple sequences in multiple planes. Images were i nterpreted on a high-resolution PACS system. COMPARISON: None available. FINDINGS: Medial compartment: The medial meniscus is intact. The articular cartilage is normal. There is annamaria dence of a recent medial patellofemoral ligament reconstruction with a large screw in the medial fem oral condyle and 2 small screws within the medial patella. The reconstruction appears intact withou t evidence of a defect. There is adjacent medial soft tissue swelling. There is no discrete absces s identified. Lateral compartment: There is no evidence for meniscal degeneration or tear. There is no evidence f or chondral defect. The lateral collateral ligamentous complex is intact. Intercondylar notch: The ACL is intact. The PCL is intact. Patellofemoral joint: There is low grade chondral fissuring over the median ridge of the patella and the medial patellar facet (axial 9). The patella is in well seated in the trochlea noting a somewh at shallow trochlea. There is no trochlear cartilage defect identified. The quadriceps and the kuhn llar tendons are intact. Other findings: There is a small knee joint effusion with synovitis. There is no popliteal cyst. Th ere is no acute fracture. IMPRESSION: 1. Recent medial patellofemoral ligament repair as described above without MR evidence of hardware c omplication. The patella is well seated in a slightly shallow trochlea and there is low grade chondr al fissuring over the median ridge of the patella and the medial patellar facet likely related to pr evious lateral patellar dislocation event(s). 2. Subcutaneous soft tissue swelling throughout the knee, greatest medially, nonspecific but presuma luis related to the recent previous surgery. No drainable subcutaneous fluid collection. 3. Small knee joint effusion with synovitis. 4. No evidence of meniscal tear. RPTAT: UU .Preet Ibanez MD, Date Time Electronically viewed and signed by .Preet Ibanez MD, on 06/03/2016 11:14 .K/
[2016-06-03 12:00] VITALS: BP 134/73; PULSE 63; RESP 18
--- NOTE | 2016-06-03 13:00 | PN ---
Date/Time of Note Date/Time of Note DATE: 06/03/16 TIME: 13:00 Assessment/Plan Lines/Catheters IV Catheter Type (from Nrsg): Saline Lock Chiang in Place (from Nrsg): No Assessment/Plan Assessment/Plan POD# 2 status post right knee arthroscopy with medial patellofemoral ligament reconstruction with semitendinosus allograft performed on the morning of 2016. Admitted for intractable post op pain. Arterial and venous doppler u/s negative. Patient has a high level of anxiety associated with the surgery and pain was not well controlled. 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 Pain well controlled. Denies f/c/n/v/cp/sob Constitutional: no complaints Feeding: advancing diet Pain Control: well controlled Exam/Review of Systems Vital Signs Vitals Vital Signs Date Time Temp Pulse Resp B/P Pulse Ox O2 Delivery O2 Flow Rate FiO2 06/03/16 07:46 98.3 62 22 126/57 97 06/03/16 04:00 Room Air 06/02/16 22:00 2.0 Intake and Output 06/02/16 06/02/16 06/03/16 15:00 23:00 07:00 Intake Total 1330 ml 500 ml Output Total 700 ml 450 ml Balance 630 ml 50 ml Exam Constitutional: alert, oriented, well developed Psych: nl mood/affect, no complaints Musculoskeletal: other (RLE/ 5 out of 5 TA/GSC/EDL, SILT m/l/d/p/fdws. DP and PT 2+. toes wwp, cr brisk, ttp over the ant knee, no pain along the posterior knee) Results Result Diagram: 06/03/16 0500 06/03/16 0500 IRIS ANDREWS MD Jun 03, 2016 13:00
--- NOTE | 2016-06-03 13:04 | CONS ---
Date/Time of Note Date/Time of Note DATE: 06/03/16 TIME: 13:02 Assessment/Plan Assessment/Plan Chief Complaint/Hosp Course Patient is 22 year old male who is status post POD#3 s/p Left ankle ex-fix removal, ORIF of the distal tibial and fibular pilon fracture. I was consulted by Dr Andrews for assistance in managing his pain . Pain is moderately controlled. Recommendations 1.oxycontin 20 mg BID 2. Percocet 10/325 1tab q6hr prn ` 3. Neurontin 300 m TID 4. D/C IV Dilaudid Thank you for consult , please do not hesitate to contact me [phone] Problems: Consultation Date/Type/Reason Admit Date/Time 06/02/16 0144 Date of Consultation: Jun 03, 2016 Type of Consultation: Pain Management Reason for Consultation Intractable pain Referring Provider: IRIS ANDREWS MD Hx of Present Illness Patient is 22 year old male who is status post POD#3 s/p Left ankle ex-fix removal, ORIF of the distal tibial and fibular pilon fracture. I was consulted by Dr Andrews for assistance in managing his pain . Respiratory: no complaints Cardiovascular: no complaints Psychological: anxiety Past Medical History Medical History: no pertinent history, other (history of CELINA which resolved with Tonssillectomy ) Past Surgical History Fundoplication Family History Significant Family History: cancer, diabetes, hypertension, other Social History Alcohol Use: none Smoking Status: Never smoker Drug Use: none Exam/Review of Systems Vital Signs Vitals Vital Signs Date Time Temp Pulse Resp B/P Pulse Ox O2 Delivery O2 Flow Rate FiO2 06/03/16 07:46 98.3 62 22 126/57 97 06/03/16 04:00 Room Air 06/02/16 22:00 2.0 Intake and Output 06/02/16 06/02/16 06/03/16 15:00 23:00 07:00 Intake Total 1330 ml 500 ml Output Total 700 ml 450 ml Balance 630 ml 50 ml Exam Constitutional: alert, oriented Head: normocephalic Respiratory: clear to auscultation Cardiovascular: regular rate and rhythm Results Result Diagram: 06/03/16 0500 06/03/16 0500 Results 24 hrs Laboratory Tests Test 06/03/16 05:00 White Blood Count 7.3 # Red Blood Count 5.02 Hemoglobin 14.5 Hematocrit 44.1 Mean Corpuscular Volume 87.8 Mean Corpuscular Hemoglobin 28.9 L Mean Corpuscular Hemoglobin Concent 32.9 Red Cell Distribution Width 12.3 Platelet Count 197 Mean Platelet Volume 10.1 Neutrophils % 71.5 Lymphocytes % 19.4 Monocytes % 7.1 Eosinophils % 1.6 Basophils % 0.3 Nucleated Red Blood Cells % 0.0 Neutrophils # 5.2 Lymphocytes # 1.4 Monocytes # 0.5 Eosinophils # 0.1 Basophils # 0.0 Nucleated Red Blood Cells # 0.0 Sodium Level 139 Potassium Level 4.1 Chloride Level 102 Carbon Dioxide Level 30 Anion Gap 11 Blood Urea Nitrogen 14 Creatinine 1.00 Glucose Level 114 # Hemoglobin A1c 5.4 Calcium Level 9.2 Phosphorus Level 4.0 Magnesium Level 1.9 Total Bilirubin 0.3 Direct Bilirubin 0.00 Indirect Bilirubin 0.3 Aspartate Amino Transf (AST/SGOT) 44 Alanine Aminotransferase (ALT/SGPT) 25 Alkaline Phosphatase 40 L Total Protein 6.5 Albumin 3.8 Globulin 2.70 Albumin/Globulin Ratio 1.40 Thyroid Stimulating Hormone (TSH) 0.744 Medications Medications Current Medications Ondansetron HCl (Zofran Inj) 4 mg Q4H PRN IV NAUSEA AND/OR VOMITING Last administered on 06/03/16 04:02; Admin Dose 4 MG; Start 06/02/16 at 02:00 Diphenhydramine HCl (Benadryl) 25 mg Q4H PRN PO ITCHING; Start 06/02/16 at 02: 00 Ondansetron HCl (Zofran Tab) 4 mg Q6H PRN PO NAUSEA AND/OR VOMITING; Start at 03:30 Acetaminophen (Tylenol Tab) 650 mg Q6H PRN PO PAIN LEVEL 1-3 OR FEVER Last administered on 06/03/16 03:59; Admin Dose 650 MG; Start 06/02/16 at 03:30 Famotidine (Pepcid) 20 mg Q12 PO Last administered on 06/03/16 09:12; Admin Dose 20 MG; Start 06/02/16 at 09:00 Naloxone HCl (Narcan) 0.2 mg Q2M PRN IV RR 8 BREATHS/MIN OR LESS; Start at 03:30 Cyclobenzaprine HCl 10 mg 10 mg DAILY PRN PO MUSCLE SPASMS Last administered on 06/02/16 08:22; Admin Dose 10 MG; Start 06/02/16 at 09:00 Cefazolin Sodium (Ancef 1 Gm/50 ml (Pmx)) 50 ml @ 100 mls/hr Q8H IVPB Last administered on 06/03/16 09:22; Admin Dose 100 MLS/HR; Start 06/02/16 at 10:00 ; Stop 06/03/16 at 18:01 Oxycodone HCl (Roxicodone) 10 mg Q4H PRN PO PAIN LEVEL 6-10; Start 06/02/16 at 12:00 Hydromorphone HCl (Dilaudid PRINTED CIRCUIT BOARD DRAFTER) 0 MG/HR CONTINUOUS RATE ... Q4PCA IV Last administered on 06/02/16 19:43; Admin Dose 6 MG; Start 06/02/16 at 12:00 Senna/Docusate Sodium (Senokot-S) 2 tab HS PO ; Start 06/03/16 at 21:00 Oxycodone HCl (Oxycontin) 40 mg BID PO Last administered on 06/03/16 09:12; Admin Dose 40 MG; Start 06/02/16 at 20:00 Enoxaparin Sodium (Lovenox) 40 mg DAILY SC ; Start 06/04/16 at 09:00 PHUONG MCGIURE Jun 03, 2016 13:04
[2016-06-03] MEDS: oxyCODONE 5 MG TAB PO PRN (15:17)
[2016-06-03] MEDS: DOCUSATE SODIUM 100 MG CAP PO PRN (18:57)
[2016-06-03 19:00] VITALS: BP 141/75; RESP 18
[2016-06-03] MEDS ORDERED: ACETAMINOPHEN 325 MG TAB PO PRN (19:00)
[2016-06-03] MEDS: SENNA/DOCUSATE NA (8.6MG/50MG) TAB PO SCH (21:16)
[2016-06-03] MEDS: GABAPENTIN 300 MG CAP PO SCH (21:18)
[2016-06-04] MEDS: oxyCODONE 5 MG TAB PO PRN ×2 (04:40→22:39)
[2016-06-04] MEDS: ONDANSETRON 4 MG TAB PO PRN ×2 (04:42→22:39)
[2016-06-04 07:43] VITALS: BP 140/77; RESP 20
[2016-06-04] MEDS: FAMOTIDINE 20 MG TAB PO SCH ×2 (09:17→21:35)
[2016-06-04] MEDS: GABAPENTIN 300 MG CAP PO SCH ×3 (09:17→21:34)
[2016-06-04] MEDS: oxyCODONE (CR) 20 MG TAB [oxyCONTIN] PO SCH (09:18)
[2016-06-04] MEDS: ENOXAPARIN 40 MG/0.4 ML SYG SC SCH (09:19)
[2016-06-04] MEDS: ONDANSETRON 4 MG INJ IV PRN (09:33)
[2016-06-04] MEDS: DOCUSATE SODIUM 100 MG CAP PO PRN (13:02)
--- NOTE | 2016-06-04 13:13 | PN ---
Date/Time of Note Date/Time of Note DATE: 06/04/16 TIME: 13:11 Assessment/Plan Lines/Catheters IV Catheter Type (from Nrsg): Saline Lock Chiang in Place (from Nrsg): No Assessment/Plan Assessment/Plan POD# 3 status post right knee arthroscopy with medial patellofemoral ligament reconstruction with semitendinosus allograft performed on the morning of 2016. Admitted for intractable post op pain. Arterial and venous doppler u/s negative. Patient has a high level of anxiety associated with the surgery and pain was not well controlled. 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 Pain controlled Feeding: advancing diet Exam/Review of Systems Vital Signs Vitals Vital Signs Date Time Temp Pulse Resp B/P Pulse Ox O2 Delivery O2 Flow Rate FiO2 06/04/16 07:43 98.1 59 20 140/77 97 06/03/16 12:00 Room Air 06/02/16 22:00 2.0 Intake and Output 06/03/16 06/03/16 06/04/16 15:00 23:00 07:00 Intake Total 1020 ml 1200 ml Output Total 2950 ml Balance 1020 ml -1750 ml Exam Constitutional: alert, oriented, well developed Psych: nl mood/affect, no complaints Musculoskeletal: other (RLE/ wound clean and dry. ta/gsc/ehl intact. silt m/l/d /p/fdws, cr brisk, toes wwp) Results Result Diagram: 06/03/16 0500 06/03/16 0500 IRIS ANDREWS MD Jun 04, 2016 13:13
[2016-06-04 19:00] VITALS: BP 133/81; RESP 16
[2016-06-04] MEDS: SENNA/DOCUSATE NA (8.6MG/50MG) TAB PO SCH (21:34)
[2016-06-05 08:18] VITALS: BP 128/68; RESP 18
[2016-06-05] MEDS: FAMOTIDINE 20 MG TAB PO SCH (09:13)
[2016-06-05] MEDS: GABAPENTIN 300 MG CAP PO SCH ×2 (09:14→13:08)
[2016-06-05] MEDS: ENOXAPARIN 40 MG/0.4 ML SYG SC SCH (09:16)
--- NOTE | 2016-06-05 10:48 | PDOCDIS ---
Discharge Instructions CONDITION Patient Condition: Good HOME CARE INSTRUCTIONS: Diet Instructions: Regular ACTIVITY: Activity Restrictions: No Restrictions FOLLOW UP/APPOINTMENTS Appointments F/U WITH ORTHO IN 1-2 WEEKS AND WITH YOUR PCP IN 1-2 WEEKS OMER MANCILLA Jun 05, 2016 10:48
[2016-06-05] MEDS ORDERED: SENN-88 PO (10:51)
[2016-06-05] MEDS ORDERED: OXYC-481 PO (10:51)
--- NOTE | 2016-06-05 11:13 | DS ---
DATE OF ADMISSION: 06/02/2016 DATE OF DISCHARGE: 06/05/2016 DISCHARGE DIAGNOSIS: Recurrent patellar dislocation status post right knee arthroscopically and cho ndroplasty with medial patella femoral ligament reconstruction with semitendinosus allograft and med ial femoral ligament reefing, now cleared for discharge per ortho. Discharge with pain medicines. HOSPITAL COURSE: The patient is a 20-year-old male with a history of right knee pain. The patient had undergone surgery on the right knee with Dr. Darnell. The surgery was planned. The patient did have nerve block but pain did become an issue and the patient was seen by pain specialist. The robert ent did undergo surgery as mentioned above, is cleared for discharge per ortho. The patient's pain was controlled with oxycodone and constipation which was treated with Senna. Once again, the patient was cleared for discharge per ortho. On the day of discharge, the patient's vitals, labs, p hysical exam were stable. He had no acute complaints. Questions were answered. CONDITION ON DISCHARGE: Stable. DISPOSITION: To home. MEDICATIONS: The patient was given a prescription for: 1. Oxycodone. 2. Senna. 3. The patient continues on Xopenex. FOLLOWUP: Patient to follow up with his PCP in 1 to 2 weeks and with orthopedics as instructed. Approximately 30 minutes was spent coordinating discharge of patient. Dictated By: OMER MANCILLA MD BS/NTS Conf#: [id number] DID#: [id number]
== END 2016-06-05 13:40 | disposition home or self-care (01) | DRG 948 ==
LOC: E/R 21:57 → MS2 06-02 01:44 → OBSVTOIN 06-02 17:03
PROVIDERS: ADMIT Family Medicine; ATTEND Internal Medicine
DX: G89.18 Other acute postprocedural pain (principal); F41.9 Anxiety disorder, unspecified; G47.33 Obstructive sleep apnea (adult) (pediatric); K59.00 Constipation, unspecified; Z87.39 Personal history of other diseases of the musculoskeletal system and connective tissue
CPT/HCPCS: 73722; 80048; 80053; 82306; 83036; 83735; 84100; 84443; 85025; 93306; 93922; 93971; 96374; 96375; 96376; 97162; G0378; J0690; J1170; J1650; J1885; J2405; J3360

== ENCOUNTER 2017-01-28 12:13 | Day surgery (SDC) | payer OTHER ==
--- NOTE | 2016-12-31 05:13 | CONS ---
DATE OF ADMISSION: 11/26/2016 DATE OF CONSULTATION: TYPE OF CONSULTATION: Preoperative gastroenterology I thank you very much for this kind referral. HISTORY OF PRESENT ILLNESS: Mr. Donnie Pantoja is a 21-year-old male patient who has been referre d to me for further evaluation of gastroesophageal reflux disease with choking during the night. Th e patient is status post fundoplication. He does not have any upper abdominal pain, nausea or vomit ing, not on nonsteroidal anti-inflammatory agents. No history of gallstones or liver disease. No c hange in bowel habit or rectal bleeding, not a hypertensive or diabetic. No heart disease or lung p roblem. No kidney disease, nonsmoker. No alcohol abuse, no family history of gastrointestinal trac t neoplasm. HE SAYS HE HAS GOT SIDE EFFECTS TO REGLAN AND LANSOPRAZOLE. MEDICATIONS: None. PHYSICAL EXAMINATION: GENERAL: He is 5 feet 11 inches tall and he weighs 172 pounds, normal heart sounds. LUNGS: Clear. ABDOMEN: Soft. No masses. Normal bowel sounds. NEUROLOGIC: Normal exam. IMPRESSION: 1. Gastroesophageal reflux disease with choking in the night. 2. Status post fundoplication. 3. History of side effects from Reglan and lansoprazole. PLAN: 1. The patient has been advised to finish dinner at least 4 hours before going to bed. 2. He has been advised to elevate the head of the bed. 3. Avoid caffeine, greasy food, soda, mint and chocolates. 4. Pantoprazole 40 mg p.o. 30 minutes before dinner. 5. Barium swallow and upper endoscopy for further evaluation. 6. Because of the history of INTOLERANCE TO NARCOTICS, he needs monitored anesthesia care. The procedure and possible complications are well explained to the patient and the family. They und erstand and consent to the procedure. I thank you once again. With warmest personal regards, Dictated By: TRISTIAN CASH/SUSANNAH Conf#: [id number] DID#: [id number]
[~2017-01-28] VITALS: Ht 180.3 cm; Wt 77.8 kg
[~2017-01-28 12:13] MED LIST changes: +OXYC-481 PO; +SENN-88 PO
[2017-01-28 12:36] VITALS: Ht 180.3 cm; Wt 77.8 kg
[2017-01-28] MEDS ORDERED: FLUT9.9S NASAL (12:47)
[2017-01-28 13:03] VITALS: BP 142/88; PULSE 75; RESP 10
[2017-01-28 13:13] VITALS: BP 118/58; PULSE 82; RESP 25
--- NOTE | 2017-01-28 13:14 | OPPN ---
Date/Time of Note Date/Time of Note DATE: 01/28/17 TIME: 13:13 Operative Report Preoperative Diagnosis Gastroesophageal reflux disease Postoperative Diagnosis Status post fundoplication Gastritis with erosions Operation/Procedure Performed Esophagogastroduodenoscopy and biopsy Surgeon see signature line certified pathology assistant None Anesthesia: MAC Estimated blood loss: none Transfusion Required none Specimen Gastric mucosal biopsy Grafts/Implants none Complications none TRISTIAN GRIFFIN MD Jan 28, 2017 13:14
[2017-01-28 13:40] VITALS: BP 126/70; PULSE 58; RESP 20
[2017-01-28] MEDS ORDERED: PROPOFOL 40 ML ONE (13:42)
--- NOTE | 2017-01-28 14:10 | GILP ---
DATE OF PROCEDURE: 01/28/2017 NAME OF PROCEDURES: Esophagogastroduodenoscopy and biopsy. SURGEON: Tristian Nolen MD PREOPERATIVE DIAGNOSIS: Gastroesophageal reflux disease. POSTOPERATIVE DIAGNOSES 1. Status post fundoplication. 2. Gastritis with erosions. 3. Gastric mucosal biopsies were taken for Helicobacter pylori test. INDICATION FOR THE PROCEDURE: Mr. Donnie Pantoja is a 21-year-old male patient who had gastroesop hageal reflux disease, not responding to therapy. The patient was scheduled for endoscopic examinat ion for further evaluation. The procedure and possible complications are well explained to the patient. The patient understood and consented to the procedure. DESCRIPTION OF PROCEDURE: Under the influence of anesthesia, the gastroscope was carefully introduc ed into the esophagus and under direct vision it was advanced to the stomach and through the pylorus into the duodenal bulb and descending duodenum. FINDINGS: ESOPHAGUS: The mucosa was normal. STOMACH: The patient was status post fundoplication and he was noted to have gastritis with erosion s. Gastric mucosal biopsies were taken for H. pylori test. DUODENUM: Normal. He tolerated the procedure very well and there was no complication from the procedure. At the end o f the procedure, he was awake with stable vital signs and he was discharged home to the care of his family. IMPRESSION: Please see postoperative diagnosis. PLAN: 1. Pantoprazole 40 mg 30 minutes before dinner. 2. Await Helicobacter pylori test report. Dictated By: TRISTIAN CASH/SUSANNAH Conf#: [id number] DID#: [id number]
== END 2017-01-28 16:59 | disposition home or self-care (01) ==
LOC: GIL 12:13
PROVIDERS: ATTEND Internal Medicine Gastroenterology
DX: K29.60 Other gastritis without bleeding (principal)
CPT/HCPCS: 43239; 87081; Z7610